=== PATIENT | female | born 1945 | race Caucasian/White ===

== ENCOUNTER 2019-09-10 17:46 | Emergency (ER) | payer MEDICARE ==
--- NOTE | 2019-09-10 18:35 | RAD ---
XR Knee Lt 4 View STANDARD: 09/10/2019 6:15 PM CLINICAL INDICATION: Twisting injury to the left knee with left knee pain COMPARISON: None. FINDINGS: Bones: There is diffuse osteopenia. No acute fracture or subluxation demonstrated. Joints: There is mild osteoarthrosis involving the left knee predominantly affecting the patellofemor al compartment. No joint capsular distention is noted.. Soft Tissue: There are mild vascular calcifications within the peripheral soft tissues. IMPRESSION: No acute osseous abnormality..
== END 2019-09-10 19:11 | disposition home or self-care (01) ==
LOC: ERS 17:46
DX: S83.92XA Sprain of unspecified site of left knee, initial encounter (principal); E05.90 Thyrotoxicosis, unspecified without thyrotoxic crisis or storm; X50.9XXA Other and unspecified overexertion or strenuous movements or postures, initial encounter